=== PATIENT | female | born 1965 | race Caucasian/White ===

== ENCOUNTER 2018-10-29 14:30 | Outpatient (CLI) | payer BC, OTHER ==
[2018-10-29] MEDS ORDERED: VENL75CA PO (14:53)
[2018-10-29] MEDS ORDERED: ALPR1TAB6 PO (14:53)
[2018-10-29] MEDS ORDERED: [UNRECOGNIZED DRUG - REMARK] (14:53)
== END 2018-10-29 23:59 | disposition home or self-care (01) ==
LOC: STAR 14:30
PROVIDERS: ATTEND Orthopaedic Surgery
DX: Z02.9 Encounter for administrative examinations, unspecified (principal)